=== PATIENT | female | born 1945 | race African-American/Black ===

== ENCOUNTER → 2016-11-24 | Outpatient (CLI) | payer MEDICARE, OTHER ==
[~2016-11-24] MED LIST: ASPIRIN 32325 MG/TAB PO; CALCIUM 600600 MG PO; CALCIUM 600MG+D1 TAB PO; CARDI-OMEGA1000 MG PO; COZAAR100 MG PO; EFFER-K10 MEQ PO; FE 50160 MG PO; FISH OIL 1000MG1 CAP PO; FOLIC ACID 40400 MCG PO; KLOR-CON 1010 MEQ PO; LASIX 20MG TABL20 MG PO; LIPITOR 80MG80 MG PO; LORTAB 7.5/5001 TAB PO; MOBIC 7.5MG7.5 MG PO; NATURE'S BLEN1000 IU PO; NITROSTAT0.4 MG/TAB SL; NORCO 325 MG-51 TAB PO; NORCO 325 MG-7.1 TAB PO; NORVASC 10MG10 MG PO; PLETAL 100MG T100 MG PO; PROZAC 20MG20 MG PO; RYZOLT100 MG PO; TIROSINT75 MC1 PO; TYLENOL 500MG500 MG PO; ULTRAM 50MG TAB50 MG PO; VALIUM 10MG10 MG/TAB PO; VITAMIN C500 MG PO; ZETIA 10MG TAB10 MG PO
== END ==
LOC: SUN.DIA 11-17 15:44
DX: E11.9 Type 2 diabetes mellitus without complications (principal); E66.9 Obesity, unspecified; Z68.32 Body mass index [BMI] 32.0-32.9, adult; Z71.3 Dietary counseling and surveillance; E78.5 Hyperlipidemia, unspecified; I10 Essential (primary) hypertension

== ENCOUNTER → 2017-02-11 | Outpatient (CLI) | payer MEDICARE, OTHER | LOC: MC.RAD 09:22 | DX: Z12.31 Encounter for screening mammogram for malignant neoplasm of breast (principal) ==

== ENCOUNTER → 2017-04-07 | Outpatient (CLI) | payer MEDICARE, OTHER | LOC: SUN.DIA 03-23 15:30 | DX: E11.9 Type 2 diabetes mellitus without complications (principal); E78.5 Hyperlipidemia, unspecified; I10 Essential (primary) hypertension; E66.9 Obesity, unspecified; Z68.33 Body mass index [BMI] 33.0-33.9, adult; Z71.3 Dietary counseling and surveillance | CPT/HCPCS: G0108 ==

== ENCOUNTER 2017-05-03 07:22 | Day surgery (SDC) | payer MEDICARE, OTHER ==
[~2017-05-03] VITALS: Ht 147.3 cm; Wt 72.0 kg
[2017-05-03] VITALS (12 sets, daily range): BP systolic 124–156; BP diastolic 53–136; PULSE 68–83; TEMP 97.4–97.9
[~2017-05-03 07:22] MED LIST changes: -FISH OIL 1000MG1 CAP PO
[2017-05-03 07:58] LABS: INR 0.9 (0.8-3.0); PROTHROMBIN TIME 10.1 SECONDS (9.7-12.8)
[2017-05-03 07:59] LABS: HEMATOCRIT 38.6 % (37.0-47.0); HEMOGLOBIN 12.9 g/dl (12.5-16.0); MEAN CELL VOLUME 91 fl (80.0-100.0); MEAN CORPUSCULAR HEMOGLOBIN 30 pg (27.0-31.0); MEAN CORPUSCULAR HGB CONC 33 g/dl (33.0-37.0); PLATELET COUNT 240 K/mm3 (130-400); RED BLOOD COUNT 4.24 M/mm3 (4.10-5.30); REDCELL DISTRIBUTION WIDTH-CV 13.2 % (11.5-14.5); WHITE BLOOD COUNT 4.2 K/mm3 (4.8-10.8)
[2017-05-03] MEDS ORDERED: FISH OIL 1000MG1 CAP PO (08:01)
[2017-05-03] MEDS ORDERED: MOBIC 7.5MG7.5 MG PO (08:05)
[2017-05-03 08:10] LABS: CALCIUM 9.2 mg/dL (8.4-10.2); CREATININE, serum 0.83 mg/dL (0.52-1.25)
[2017-05-03 08:24] LABS: POTASSIUM 3.4 mmol/L (3.4-5.0)
== END 2017-05-03 15:56 | disposition home or self-care (01) ==
LOC: COL.CAR 07:22
PROVIDERS: Internal Medicine Cardiovascular Disease
DX: I25.10 Atherosclerotic heart disease of native coronary artery without angina pectoris (principal); I10 Essential (primary) hypertension; Z95.5 Presence of coronary angioplasty implant and graft; F41.8 Other specified anxiety disorders; F32.9 Major depressive disorder, single episode, unspecified; K21.9 Gastro-esophageal reflux disease without esophagitis; M19.90 Unspecified osteoarthritis, unspecified site; M48.06 Spinal stenosis, lumbar region; I73.9 Peripheral vascular disease, unspecified; E11.9 Type 2 diabetes mellitus without complications; E78.2 Mixed hyperlipidemia; L30.9 Dermatitis, unspecified; I31.3 Pericardial effusion (noninflammatory); E03.9 Hypothyroidism, unspecified; R94.39 Abnormal result of other cardiovascular function study; E88.81 Metabolic syndrome and other insulin resistance; Z96.651 Presence of right artificial knee joint; Z83.3 Family history of diabetes mellitus; Z82.49 Family history of ischemic heart disease and other diseases of the circulatory system; Z90.710 Acquired absence of both cervix and uterus; Z87.891 Personal history of nicotine dependence; Z82.61 Family history of arthritis; Z82.3 Family history of stroke
CPT/HCPCS: C1760; C1769; C1887; J0153; J1644; J2250; J3010; Q9967

== ENCOUNTER → 2017-11-17 | Outpatient (CLI) | payer MEDICARE, OTHER, BC ==
[~2017-11-17] MED LIST changes: +FISH OIL 1000MG1 CAP PO
== END ==
LOC: SUN.DIA 08:43
DX: E11.51 Type 2 diabetes mellitus with diabetic peripheral angiopathy without gangrene (principal); E78.5 Hyperlipidemia, unspecified; I10 Essential (primary) hypertension; E66.9 Obesity, unspecified; Z68.32 Body mass index [BMI] 32.0-32.9, adult; Z71.3 Dietary counseling and surveillance; Z87.891 Personal history of nicotine dependence
CPT/HCPCS: G0108

== ENCOUNTER → 2018-01-02 | Outpatient (CLI) | payer MEDICARE, OTHER, BC | LOC: SUN.DIA 09:00 | DX: E11.51 Type 2 diabetes mellitus with diabetic peripheral angiopathy without gangrene (principal); E78.5 Hyperlipidemia, unspecified; I10 Essential (primary) hypertension; E66.9 Obesity, unspecified; Z71.3 Dietary counseling and surveillance; Z87.891 Personal history of nicotine dependence | CPT/HCPCS: G0109 ==

== ENCOUNTER → 2018-01-09 | Outpatient (CLI) | payer MEDICARE, OTHER, BC | LOC: SUN.DIA 09:00 | DX: E11.51 Type 2 diabetes mellitus with diabetic peripheral angiopathy without gangrene (principal); E78.5 Hyperlipidemia, unspecified; I10 Essential (primary) hypertension; E66.9 Obesity, unspecified; Z71.3 Dietary counseling and surveillance; Z87.891 Personal history of nicotine dependence | CPT/HCPCS: G0109 ==

== ENCOUNTER → 2018-01-16 | Outpatient (CLI) | payer MEDICARE, OTHER, BC | LOC: SUN.DIA 09:00 | DX: E11.51 Type 2 diabetes mellitus with diabetic peripheral angiopathy without gangrene (principal); E78.5 Hyperlipidemia, unspecified; I10 Essential (primary) hypertension; E66.9 Obesity, unspecified; Z71.3 Dietary counseling and surveillance; Z87.891 Personal history of nicotine dependence | CPT/HCPCS: G0109 ==

== ENCOUNTER → 2018-01-23 | Outpatient (CLI) | payer MEDICARE, OTHER, BC | LOC: SUN.DIA 09:00 | DX: E11.51 Type 2 diabetes mellitus with diabetic peripheral angiopathy without gangrene (principal); E78.5 Hyperlipidemia, unspecified; I10 Essential (primary) hypertension; E66.9 Obesity, unspecified; Z71.3 Dietary counseling and surveillance; Z87.891 Personal history of nicotine dependence | CPT/HCPCS: G0109 ==

== ENCOUNTER → 2018-04-26 | Outpatient (CLI) | payer MEDICARE, OTHER | LOC: MC.RAD 03-22 08:40 | DX: Z12.31 Encounter for screening mammogram for malignant neoplasm of breast (principal) ==

== ENCOUNTER → 2018-05-29 | Outpatient (CLI) | payer MEDICARE, OTHER | LOC: SUN.DIA 05-16 09:39 | DX: E11.9 Type 2 diabetes mellitus without complications (principal); E78.5 Hyperlipidemia, unspecified; I10 Essential (primary) hypertension; E66.9 Obesity, unspecified; Z68.32 Body mass index [BMI] 32.0-32.9, adult; Z71.3 Dietary counseling and surveillance; I73.9 Peripheral vascular disease, unspecified | CPT/HCPCS: G0108 ==

== ENCOUNTER 2018-06-27 11:30 | Outpatient (RCR) | payer MEDICARE, OTHER | END 2018-09-14 | disposition home or self-care (01) | LOC: MKS.ESL.PT | DX: M54.42 Lumbago with sciatica, left side (principal); M54.41 Lumbago with sciatica, right side; G89.29 Other chronic pain | CPT/HCPCS: G0283-GP; G8978-GP; G8979-GP ==

== ENCOUNTER → 2018-06-28 | Outpatient (CLI) | payer MEDICARE, OTHER | LOC: COL.RAD 14:21 | DX: M48.061 Spinal stenosis, lumbar region without neurogenic claudication (principal); M41.86 Other forms of scoliosis, lumbar region; M47.816 Spondylosis without myelopathy or radiculopathy, lumbar region; M99.73 Connective tissue and disc stenosis of intervertebral foramina of lumbar region; M54.42 Lumbago with sciatica, left side ==

== ENCOUNTER → 2018-08-11 | Outpatient (CLI) | payer MEDICARE, OTHER | LOC: MHCPAIN 09:46 | DX: G89.29 Other chronic pain (principal); M54.16 Radiculopathy, lumbar region; M53.3 Sacrococcygeal disorders, not elsewhere classified; M47.817 Spondylosis without myelopathy or radiculopathy, lumbosacral region; M48.061 Spinal stenosis, lumbar region without neurogenic claudication | CPT/HCPCS: G0463 ==

== ENCOUNTER → 2018-08-31 | Outpatient (CLI) | payer MEDICARE, OTHER | LOC: MHCPAIN 11:36 | DX: M47.817 Spondylosis without myelopathy or radiculopathy, lumbosacral region (principal); M54.16 Radiculopathy, lumbar region | CPT/HCPCS: J1100; Q9967 ==

== ENCOUNTER → 2018-09-12 | Outpatient (CLI) | payer MEDICARE, OTHER | LOC: MHCPAIN 10:42 | DX: G89.29 Other chronic pain (principal); M47.817 Spondylosis without myelopathy or radiculopathy, lumbosacral region; M54.16 Radiculopathy, lumbar region; M53.3 Sacrococcygeal disorders, not elsewhere classified; M48.061 Spinal stenosis, lumbar region without neurogenic claudication | CPT/HCPCS: G0463 ==

== ENCOUNTER → 2018-09-14 | Outpatient (CLI) | payer MEDICARE, OTHER | LOC: MHCPAIN 09:54 | DX: M47.817 Spondylosis without myelopathy or radiculopathy, lumbosacral region (principal); M54.16 Radiculopathy, lumbar region | CPT/HCPCS: J1100; Q9967 ==

== ENCOUNTER → 2018-10-10 | Outpatient (CLI) | payer MEDICARE, OTHER | LOC: MHCPAIN 09:33 | DX: G89.29 Other chronic pain (principal); M47.817 Spondylosis without myelopathy or radiculopathy, lumbosacral region; M54.16 Radiculopathy, lumbar region; M53.3 Sacrococcygeal disorders, not elsewhere classified; M48.061 Spinal stenosis, lumbar region without neurogenic claudication | CPT/HCPCS: G0463 ==

== ENCOUNTER → 2018-10-19 | Outpatient (CLI) | payer MEDICARE, OTHER | LOC: MHCPAIN 09:41 | DX: M47.817 Spondylosis without myelopathy or radiculopathy, lumbosacral region (principal); M54.16 Radiculopathy, lumbar region | CPT/HCPCS: J1100; Q9967 ==

== ENCOUNTER → 2018-11-30 | Outpatient (CLI) | payer MEDICARE, OTHER | LOC: SUN.DIA 12:43 | DX: E11.9 Type 2 diabetes mellitus without complications (principal); E78.5 Hyperlipidemia, unspecified; I10 Essential (primary) hypertension; E66.9 Obesity, unspecified; I73.9 Peripheral vascular disease, unspecified | CPT/HCPCS: G0108 ==

== ENCOUNTER → 2018-12-20 | Outpatient (CLI) | payer MEDICARE, OTHER | LOC: MHCPAIN 08:42 | DX: G89.29 Other chronic pain (principal); M47.817 Spondylosis without myelopathy or radiculopathy, lumbosacral region; M54.16 Radiculopathy, lumbar region; M53.3 Sacrococcygeal disorders, not elsewhere classified; M48.061 Spinal stenosis, lumbar region without neurogenic claudication | CPT/HCPCS: G0463 ==

== ENCOUNTER → 2019-03-09 | Outpatient (CLI) | payer MEDICARE, OTHER | LOC: COL.RAD 10:18 | DX: M43.17 Spondylolisthesis, lumbosacral region (principal); M51.16 Intervertebral disc disorders with radiculopathy, lumbar region; M41.86 Other forms of scoliosis, lumbar region ==

== ENCOUNTER → 2019-05-28 | Outpatient (CLI) | payer MEDICARE, OTHER | LOC: DIA.ED 09:56 | DX: E11.9 Type 2 diabetes mellitus without complications (principal); E78.5 Hyperlipidemia, unspecified; I10 Essential (primary) hypertension; E66.9 Obesity, unspecified | CPT/HCPCS: G0108 ==

== ENCOUNTER → 2019-06-12 | Outpatient (CLI) | payer MEDICARE, OTHER | LOC: MC.RAD 11:43 | DX: Z12.31 Encounter for screening mammogram for malignant neoplasm of breast (principal) ==

== ENCOUNTER 2019-07-03 11:00 | Outpatient (RCR) | payer MEDICARE, OTHER | END 2019-07-09 | disposition home or self-care (01) | LOC: WSPT | DX: M43.16 Spondylolisthesis, lumbar region (principal); M48.062 Spinal stenosis, lumbar region with neurogenic claudication; M71.38 Other bursal cyst, other site; M81.0 Age-related osteoporosis without current pathological fracture; I10 Essential (primary) hypertension; E55.9 Vitamin D deficiency, unspecified ==

== ENCOUNTER → 2019-08-03 | Outpatient (CLI) | payer MEDICARE, OTHER | LOC: COL.RAD 07:58 | DX: M47.22 Other spondylosis with radiculopathy, cervical region (principal); I65.29 Occlusion and stenosis of unspecified carotid artery; M47.24 Other spondylosis with radiculopathy, thoracic region; M99.72 Connective tissue and disc stenosis of intervertebral foramina of thoracic region; M43.16 Spondylolisthesis, lumbar region; M48.02 Spinal stenosis, cervical region; M47.12 Other spondylosis with myelopathy, cervical region; M99.73 Connective tissue and disc stenosis of intervertebral foramina of lumbar region; E11.9 Type 2 diabetes mellitus without complications; I10 Essential (primary) hypertension | CPT/HCPCS: Q9967 ==

== ENCOUNTER 2019-08-21 10:15 | Outpatient (RCR) | payer MEDICARE, OTHER ==
[2019-08-22] MEDS ORDERED: MASON NATURAL2000 IU PO (17:50)
[2019-08-22] MEDS ORDERED: CALCIUM ASCORB500 MG PO (17:50)
[2019-08-22] MEDS ORDERED: NEURONTIN300 MG/CAP PO (17:55)
[2019-08-22] MEDS ORDERED: FLOMAX 0.40.4 MG/CAP PO (21:02)
== END 2019-09-04 14:17 | disposition home or self-care (01) ==
LOC: WSC 10:15
DX: Z01.812 Encounter for preprocedural laboratory examination (principal); M48.02 Spinal stenosis, cervical region; M43.16 Spondylolisthesis, lumbar region; M48.061 Spinal stenosis, lumbar region without neurogenic claudication; M47.12 Other spondylosis with myelopathy, cervical region; M81.0 Age-related osteoporosis without current pathological fracture

== ENCOUNTER 2019-08-22 17:09 | Emergency (ER) | payer MEDICARE, OTHER ==
[~2019-08-22] VITALS: Ht 142.2 cm; Wt 72.7 kg
[2019-08-22 17:16] VITALS: BP 175/75; TEMP 98.2
[2019-08-22] MEDS ORDERED: CALCIUM ASCORB500 MG PO (17:50)
[2019-08-22] MEDS ORDERED: MASON NATURAL2000 IU PO (17:50)
[2019-08-22] MEDS ORDERED: NEURONTIN300 MG/CAP PO (17:55)
[2019-08-22 18:08] LABS: BASO % 0.5 % (0.0-2.0); EOS # 0.2 (0.0-0.7); EOS % 3.1 % (0-4.0); GRAN # 3.2 (1.4-6.5); GRAN % 58.6 % (42.2-75.2); HEMATOCRIT 40.9 % (37.0-47.0); HEMOGLOBIN 13.1 g/dl (12.5-16.0); LYMPH # 1.4 (1.2-3.4); LYMPH % 24.4 % (20.0-51.0); MEAN CELL VOLUME 95 fl (80.0-100.0); MEAN CORPUSCULAR HEMOGLOBIN 30 pg (27.0-31.0); MEAN CORPUSCULAR HGB CONC 32 g/dl (33.0-37.0); MEAN PLATELET VOLUME 9.2 fl (7.4-10.4); MONO # 0.7 (0.1-0.6); MONO % 13.2 % (1.7-9.3); PLATELET COUNT 212 K/mm3 (130-400); RED BLOOD COUNT 4.33 M/mm3 (4.10-5.30); REDCELL DISTRIBUTION WIDTH-CV 12.7 % (11.5-14.5)
[2019-08-22 18:16] LABS: ALANINE AMINOTRANSFERASE 23 U/L (9-52); ALBUMIN 4.4 gm/dL (3.5-5.0); ALKALINE PHOSPHATASE 85 U/L (50-136); ANION GAP 11 mmol/L (7-16); AST,SGOT 32 U/L (15-37); BILIRUBIN,TOTAL 0.4 mg/dL (0.0-1.0); BLOOD UREA NITROGEN 18 mg/dL (7-17); CALCIUM 9.2 mg/dL (8.4-10.2); CARBON DIOXIDE 28 mmol/L (22-30); CHLORIDE 101 mmol/L (98-107); CREATININE, serum 1.03 (0.52-1.25); GLUCOSE 127 mg/dL (74-106); LIPASE 347 U/L (23-300); POTASSIUM 3.8 mmol/L (3.4-5.0); SODIUM 139 mmol/L (137-145); TOTAL PROTEIN 8.1 gm/dL (6.4-8.2)
[2019-08-22 18:18] LABS: C-REACTIVE PROTEIN < 0.5 mg/dL (0.0-0.9)
[2019-08-22 18:28] LABS: TROPONIN-I < 0.012 ng/mL (0.000-0.035)
[2019-08-22 18:33] LABS: COLLECTION METHOD CLEAN CATCH
[2019-08-22 18:38] LABS: PH 7 (5-8); SQUAMOUS EPITHELIAL 0-2 /hpf; URINE APPEARANCE Clear; URINE BACTERIA Rare /hpf; URINE BILIRUBIN Negative (NEGATIVE); URINE BLOOD Negative (NEGATIVE); URINE COLOR Straw; URINE GLUCOSE Negative (NEGATIVE); URINE KETONE Negative (NEGATIVE); URINE LEUKOCYTE ESTERASE Negative (NEGATIVE); URINE NITRATE Negative (NEGATIVE); URINE PROTEIN(semi-quant) Negative (NEGATIVE); URINE RBC 0-2 /hpf; URINE UROBILINOGEN Negative (NEGATIVE)
[2019-08-22] MEDS ORDERED: FLOMAX 0.40.4 MG/CAP PO (21:02)
[2019-08-22 21:19] VITALS: PULSE 95
== END 2019-08-22 21:19 | disposition home or self-care (01) ==
LOC: COL.ER 17:09
PROVIDERS: Emergency Medicine
DX: R33.9 Retention of urine, unspecified (principal); R10.9 Unspecified abdominal pain; I48.91 Unspecified atrial fibrillation; I10 Essential (primary) hypertension; E78.5 Hyperlipidemia, unspecified; Z79.82 Long term (current) use of aspirin
CPT/HCPCS: J2405; J2550; J3010; J7030; Q9967

== ENCOUNTER → 2020-06-24 | Outpatient (CLI) | payer MEDICARE, OTHER ==
[~2020-06-24] MED LIST changes: +CALCIUM ASCORB500 MG PO; +FLOMAX 0.40.4 MG/CAP PO; +MASON NATURAL2000 IU PO; +NEURONTIN300 MG/CAP PO
== END ==
LOC: MC.RAD 09:45
DX: Z12.31 Encounter for screening mammogram for malignant neoplasm of breast (principal)

== ENCOUNTER → 2021-08-04 | Outpatient (CLI) | payer MEDICARE ==
[~2021-08-04] MED LIST changes: +FLEXERIL5 MG PO; +IMDUR 30MG30 MG/TAB PO; +IMITREX50 MG PO; +NYAMYC100000 U/G TP; +NYSTATIN CREAM15 GM TP; +TOPROL XL 25MG25 MG PO; +ZOLOFT 50MG50 MG PO
== END ==
LOC: MC.RAD 10:00
DX: Z12.31 Encounter for screening mammogram for malignant neoplasm of breast (principal)

== ENCOUNTER 2021-08-12 08:19 | Day surgery (SDC) | payer MEDICARE, OTHER ==
[2021-08-12] VITALS (11 sets, daily range): BP systolic 110–171; BP diastolic 42–73; PULSE 60–72; TEMP 98.2
[~2021-08-12] VITALS: Ht 142.2 cm; Wt 74.0 kg
[~2021-08-12 08:19] MED LIST changes: -FLEXERIL5 MG PO; -IMDUR 30MG30 MG/TAB PO; -IMITREX50 MG PO; -NYAMYC100000 U/G TP; -NYSTATIN CREAM15 GM TP; -TOPROL XL 25MG25 MG PO; -ZOLOFT 50MG50 MG PO
[2021-08-12] MEDS ORDERED: FLEXERIL5 MG PO (08:41)
[2021-08-12] MEDS ORDERED: TOPROL XL 25MG25 MG PO (08:41)
[2021-08-12] MEDS ORDERED: NYSTATIN CREAM15 GM TP (08:42)
[2021-08-12] MEDS ORDERED: NYAMYC100000 U/G TP (08:42)
[2021-08-12] MEDS ORDERED: ZOLOFT 50MG50 MG PO (08:43)
[2021-08-12] MEDS ORDERED: IMITREX50 MG PO (08:43)
[2021-08-12 09:08] LABS: HEMATOCRIT 40.5 % (37.0-47.0); MEAN CELL VOLUME 93 fl (80.0-100.0); MEAN CORPUSCULAR HEMOGLOBIN 30 pg (27.0-31.0); MEAN CORPUSCULAR HGB CONC 32 g/dl (33.0-37.0); PLATELET COUNT 229 K/mm3 (130-400); RED BLOOD COUNT 4.38 M/mm3 (4.10-5.30); REDCELL DISTRIBUTION WIDTH-CV 12.9 % (11.5-14.5)
[2021-08-12 09:26] LABS: INR 1.1 (0.8-3.0); PROTHROMBIN TIME 11.8 SECONDS (9.7-12.8)
[2021-08-12 09:29] LABS: PARTIAL THROMBOPLASTIN TIME 29.5 SECONDS (26.0-37.0)
[2021-08-12 09:35] LABS: CALCIUM 9.3 mg/dL (8.4-10.2); CREATININE, serum 1.14 mg/dL (0.57-1.11); POTASSIUM 3.8 mmol/L (3.5-4.5)
--- NOTE | 2021-08-12 09:42 | NUR ---
SEE MERGE FOR ALL MEDICATION ADMINSTRATION TIMES, INTRA AND POST SEDATION ASSESSMENTS
--- NOTE | 2021-08-12 10:45 | NUR ---
Report from Blanka OWEN. Transferred from [facility] by bed. Right Tband with 12 cc air CD&I, good pulses and cap refill < 3 secs noted. VSS. Friend bedside
--- NOTE | 2021-08-12 13:30 | NUR ---
12 cc air released from right Tband and dressing applied. INT discontinued intact.
[2021-08-12] MEDS ORDERED: IMDUR 30MG30 MG/TAB PO (13:48)
--- NOTE | 2021-08-12 13:50 | NUR ---
Discharge instructions given. Transferred to private car by barrett
== END 2021-08-12 14:00 | disposition home or self-care (01) ==
LOC: COL.CAR 08:19
PROVIDERS: Internal Medicine Cardiovascular Disease
DX: I25.10 Atherosclerotic heart disease of native coronary artery without angina pectoris (principal); R94.39 Abnormal result of other cardiovascular function study; I10 Essential (primary) hypertension; E78.5 Hyperlipidemia, unspecified; E11.9 Type 2 diabetes mellitus without complications; I73.9 Peripheral vascular disease, unspecified; Z20.822 Contact with and (suspected) exposure to COVID-19
CPT/HCPCS: C1769; J1644; J2250; J3010

== ENCOUNTER → 2021-09-08 | Outpatient (CLI) | payer MEDICARE, OTHER ==
[~2021-09-08] MED LIST changes: +FLEXERIL5 MG PO; +IMDUR 30MG30 MG/TAB PO; +IMITREX50 MG PO; +NYAMYC100000 U/G TP; +NYSTATIN CREAM15 GM TP; +TOPROL XL 25MG25 MG PO; +ZOLOFT 50MG50 MG PO
== END ==
LOC: COL.RAD 08:51
DX: M47.812 Spondylosis without myelopathy or radiculopathy, cervical region (principal); M50.30 Other cervical disc degeneration, unspecified cervical region; M48.02 Spinal stenosis, cervical region; M48.03 Spinal stenosis, cervicothoracic region

== ENCOUNTER 2021-12-15 08:05 | Day surgery (SDC) | payer MEDICARE, OTHER ==
[~2021-12-15] VITALS: Ht 147.3 cm; Wt 74.5 kg
[~2021-12-15 08:05] MED LIST changes: -CALCIUM ASCORB500 MG PO; +TUMS ULTRA1000 MG PO
[2021-12-15 09:19] VITALS: BP 130/60; PULSE 77; TEMP 98
[2021-12-15] MEDS ORDERED: MAG-OX 400400 MG/TAB PO (09:42)
[2021-12-15] MEDS ORDERED: VITAMIN D31000 I1 PO (09:46)
[2021-12-15] MEDS ORDERED: CEPHALEXIN250 M1 PO (09:47)
[2021-12-15 10:10] VITALS: BP 98/34; PULSE 72; TEMP 98.3
[2021-12-15 10:25] VITALS: BP 94/44; PULSE 71
[2021-12-15 10:40] VITALS: BP 104/49; PULSE 70
[2021-12-15 10:50] VITALS: BP 94/60; PULSE 70
[2021-12-15 11:00] VITALS: BP 128/49; PULSE 72
--- NOTE | 2021-12-15 11:35 | NUR ---
1010 PT RETURNED TO [facility] VIA CART, TRANSFERED TO CHAIR WITH RN ASSIST. ALERT AND ORIENTED. MONITORS ON AND ALARMS SET. PT BP IS LOW, NOT EXPERIENCING ANY SYMPTOMS. SODA, PUDDING AND MUFFIN PROVIDED. PT DENIES AND PAIN OR NAUSEA. 1025 PT TOLERATING FOOD AND DRINK WELL. DENIES ANY DISCOMFORT. PT REMAINS ASYMTOMATIC OF HYPOTENSION. 1040 PT SITTING UP IN CHAIR. DENIES ANY DISCOMFORT OR SYMPTOMS OF HYPOTENSION. WILL CONTINUE TO MONITOR PT BP. HYPOTENSION REPORTED TO DR. ASHRAF, IN TO SPEAK WITH AND ASSESS PT. NO NEW ORDERS, OK TO D/C PT HOME IF REMAINS ASYMTOMATIC. 1050 PT SITTING UP IN CHAIR, TALKING AND ASKING QUESTIONS. DENIES ANY SYMPTOMS OF HYPOTENSION. 1100 PT SITTING UP IN CHAIR TALKING. SHOWING NO SYMPTOMS OF HYPOTENSION. 1105 REVIEWED DISCHARGE INSTRUCTIONS AND EDUCATION MATERIAL. ANSERED QUESTIONS TO PT ANS SISTERS SATISFACTION. REMOVED IV WITHOUT COMPLICATION. INSTRUCTED PT TO DRESS AND OPEN DOOR WHEN READY FOR DISCHARGE. 1135 TRANSFERED PT VIA WHEEL CHAIR TO PERSONAL VEHICLE TO BE DRIVEN HOME BY SISTER.
== END 2021-12-15 11:35 | disposition home or self-care (01) ==
LOC: SDCO 08:05
DX: Z12.11 Encounter for screening for malignant neoplasm of colon (principal); Z86.010 Personal history of colon polyps; K64.0 First degree hemorrhoids; J45.909 Unspecified asthma, uncomplicated; E11.51 Type 2 diabetes mellitus with diabetic peripheral angiopathy without gangrene; I10 Essential (primary) hypertension; G89.29 Other chronic pain; M54.9 Dorsalgia, unspecified; F32.A Depression, unspecified; F41.9 Anxiety disorder, unspecified; I25.10 Atherosclerotic heart disease of native coronary artery without angina pectoris; E78.5 Hyperlipidemia, unspecified; M48.02 Spinal stenosis, cervical region; M43.10 Spondylolisthesis, site unspecified; E03.9 Hypothyroidism, unspecified; M19.90 Unspecified osteoarthritis, unspecified site; M81.0 Age-related osteoporosis without current pathological fracture; Z79.82 Long term (current) use of aspirin; Z79.899 Other long term (current) drug therapy; Z79.890 Hormone replacement therapy; Z79.1 Long term (current) use of non-steroidal anti-inflammatories (NSAID)
CPT/HCPCS: J2704

== ENCOUNTER 2022-07-06 06:29 | Day surgery (SDC) | payer MEDICARE, OTHER ==
[~2022-07-06] VITALS: Ht 147.3 cm; Wt 71.3 kg
[~2022-07-06 06:29] MED LIST changes: +CEPHALEXIN250 M1 PO; +CORAL CALCIUM PO; +Cleocin PO; +MAG-OX 400400 MG/TAB PO; +OXYGEN NASAL.CANN; +SYNTHROID0.075 MG/T PO; -TIROSINT75 MC1 PO; +VITAMIN D31000 I1 PO
[2022-07-06 07:23] LABS: BASO % 0.6 % (0.0-2.0); EOS # 0.1 K/mm3 (0.0-0.7); EOS % 2.1 % (0.0-4.0); GRAN # 1.7 K/mm3 (1.4-6.5); GRAN % 51.9 % (42.2-75.2); HEMATOCRIT 38.4 % (37.0-47.0); HEMOGLOBIN 12.6 g/dl (12.5-16.0); LYMPH # 0.8 K/mm3 (1.2-3.4); LYMPH % 25.5 % (20.0-51.0); MEAN CELL VOLUME 93 fl (80.0-100.0); MEAN CORPUSCULAR HEMOGLOBIN 30 pg (27-31); MEAN CORPUSCULAR HGB CONC 33 g/dl (33.0-37.0); MEAN PLATELET VOLUME 9.1 fl (7.4-10.4); MONO # 0.7 K/mm3 (0.1-0.6); MONO % 19.9 % (1.7-9.3); PLATELET COUNT 164 K/mm3 (130-400); RED BLOOD COUNT 4.14 M/mm3 (4.10-5.30); REDCELL DISTRIBUTION WIDTH-CV 12.9 % (11.5-14.5)
[2022-07-06 07:35] LABS: CALCIUM 9.2 mg/dL (8.4-10.2); CREATININE, serum 1.02 mg/dL (0.57-1.11); POTASSIUM 4.2 mmol/L (3.5-4.5)
[2022-07-06 07:39] LABS: PROTHROMBIN TIME 11.6 SECONDS (9.7-12.8)
--- NOTE | 2022-07-06 07:39 | NUR ---
Initial visit; Patient and her sister thanked Convention Services Director for offering comfort, optimism, and assurance along with prayer for a very successful procedure and rapid and thorough recovery. What a pleasure meeting two such nikki Scientologist ladies.
[2022-07-06] MEDS ORDERED: FLEXERIL5 MG PO (07:55)
[2022-07-06] MEDS ORDERED: LASIX 20MG TABL20 MG PO (07:57)
[2022-07-06] MEDS ORDERED: NORCO 325 MG-7.1 TAB PO (07:58)
[2022-07-06] MEDS ORDERED: IMDUR 30MG30 MG/TAB PO (07:59)
[2022-07-06] MEDS ORDERED: MAG-OX 400400 MG/TAB PO (08:01)
[2022-07-06] MEDS ORDERED: NYSTATIN CREAM15 GM TP (08:05)
[2022-07-06 08:06] VITALS: BP 141/50; PULSE 82; TEMP 98.2
[2022-07-06] MEDS ORDERED: NYSTATIN POWDER15 GM TOP (08:06)
--- NOTE | 2022-07-06 09:15 | NUR ---
Pt to procedure,report to LEXIE mars.
--- NOTE | 2022-07-06 09:34 | NUR ---
SEE MERGE FOR ASSESSMENT,INTERVENTIONS,MEDICATIONS AND VITAL SIGNS.
--- NOTE | 2022-07-06 10:41 | NUR ---
PT ARRIVED TO ROOM 351 VIA BED, PT A&O X4, PT ABLE TO MAKE NEEDS KNOWN, VSS, PT ORIENTED TO ROOM/FLOOR ROUTINES/PLAN OF CARE, PT DENIES PAIN,
[2022-07-06 12:45] LABS: ALBUMIN 3.4 gm/dL (3.4-4.8); BILIRUBIN,TOTAL 0.4 mg/dL (0.2-1.2); CALCIUM 8.8 mg/dL (8.4-10.2); CREATININE, serum 0.91 mg/dL (0.57-1.11); POTASSIUM 4.3 mmol/L (3.5-4.5); TOTAL PROTEIN 6.7 gm/dL (6.2-8.1)
[2022-07-06 13:04] LABS: THYROID STIMULATING HORMONE 0.327 uIU/mL (0.350-4.940)
[2022-07-06 15:29] VITALS: BP 131/43; PULSE 70; TEMP 97.3
[2022-07-06 20:09] VITALS: BP 161/53; PULSE 72; TEMP 98.1
[2022-07-06 23:52] VITALS: BP 145/48; PULSE 71; TEMP 98.4
[2022-07-07 04:01] VITALS: BP 158/61; PULSE 70; TEMP 97.3
--- NOTE | 2022-07-07 06:02 | NUR ---
PATIENT HAS HAD AN UNEVENTFUL NIGHT. DRESSING REMAINS CLEAN, DRY AND INTACT. PATIENT DENIES PAIN, NEEDS OR CONCERNS. PATIENT EXPRESSES APPRECIATION TO THIS NURSE. PATIENT IS ENCOURAGED TO USE WITHIN REACH CALL LIGHT WITH ANY QUESTIONS OR CONCERNS.
[2022-07-07 08:13] VITALS: BP 125/36; PULSE 72; TEMP 97.6
[2022-07-07] MEDS ORDERED: CLEOCIN HCL300 MG PO (11:02)
[2022-07-07 11:38] VITALS: BP 129/49; PULSE 70; TEMP 97.7
--- NOTE | 2022-07-07 13:19 | NUR ---
Follow-up visit; Patient thanked Search Engine Optimization Analyst for looking in on her following her surgical procedure yesterday. Patricia is going home today, her sister Viry came while was in Patricia's room to take her home. Search Engine Optimization Analyst offered God's blessings for both of them and wished them well.
--- NOTE | 2022-07-07 13:48 | NUR ---
pt dismissed today to home, pt and pt's sister at bedside during dismissal instructions, pt educated on dismissal instructions/medication instructions/follow up instructions, pt and sister voiced no questions/concerns at time of dismissal, iv dc'd, pt transported to exit per wc, no further concerns
== END 2022-07-07 13:50 | disposition home or self-care (01) ==
LOC: COL.CAR 06:29 → MEDICAL 10:53 → COL.CAR 07-07 13:50
PROVIDERS: Internal Medicine Cardiovascular Disease
DX: I49.5 Sick sinus syndrome (principal); I45.9 Conduction disorder, unspecified; Z79.82 Long term (current) use of aspirin; Z79.899 Other long term (current) drug therapy
CPT/HCPCS: C1769; C1785; C1894; C1898; J2250; J3010; J3370; J7050

== ENCOUNTER 2022-08-26 17:55 | Emergency (ER) | payer MEDICARE, OTHER ==
[~2022-08-26] VITALS: Ht 142.2 cm; Wt 69.1 kg
[~2022-08-26 17:55] MED LIST changes: +CLEOCIN HCL300 MG PO; +NYSTATIN POWDER15 GM TOP
[2022-08-26 18:48] VITALS: TEMP 97.8
[2022-08-26 20:26] LABS: BASO % 0.5 % (0.0-2.0); EOS # 0.1 K/mm3 (0.0-0.7); GRAN # 3.2 K/mm3 (1.4-6.5); GRAN % 58.8 % (42.2-75.2); HEMATOCRIT 38.7 % (37.0-47.0); HEMOGLOBIN 12.6 g/dl (12.5-16.0); LYMPH # 1.3 K/mm3 (1.2-3.4); LYMPH % 22.9 % (20.0-51.0); MEAN CELL VOLUME 91 fl (80.0-100.0); MEAN CORPUSCULAR HEMOGLOBIN 30 pg (27-31); MEAN CORPUSCULAR HGB CONC 33 g/dl (33.0-37.0); MEAN PLATELET VOLUME 9.1 fl (7.4-10.4); MONO # 0.9 K/mm3 (0.1-0.6); MONO % 15.6 % (1.7-9.3); PLATELET COUNT 209 K/mm3 (130-400); RED BLOOD COUNT 4.24 M/mm3 (4.10-5.30); REDCELL DISTRIBUTION WIDTH-CV 13.1 % (11.5-14.5)
[2022-08-26 20:39] LABS: ALBUMIN 3.9 gm/dL (3.4-4.8); BILIRUBIN,TOTAL 0.5 mg/dL (0.2-1.2); CALCIUM 9.6 mg/dL (8.4-10.2); CREATININE, serum 1.23 mg/dL (0.57-1.11); POTASSIUM 4.1 mmol/L (3.5-4.5); TOTAL PROTEIN 7.5 gm/dL (6.2-8.1)
[2022-08-26 20:45] LABS: TROPONIN-I 0.034 ng/mL (0.00-0.033)
[2022-08-26 21:14] VITALS: BP 148/67; PULSE 81
== END 2022-08-26 21:16 | disposition home or self-care (01) ==
LOC: COL.ER 17:55
PROVIDERS: Emergency Medicine
DX: M79.605 Pain in left leg (principal); M79.604 Pain in right leg; R77.8 Other specified abnormalities of plasma proteins

== ENCOUNTER → 2022-11-30 | Outpatient (CLI) | payer MEDICARE, OTHER | LOC: MC.RAD 10:16 | DX: Z12.31 Encounter for screening mammogram for malignant neoplasm of breast (principal) ==

== ENCOUNTER → 2023-02-02 | Outpatient (CLI) | payer MEDICARE, OTHER | LOC: COL.RAD 11:47 | DX: M47.816 Spondylosis without myelopathy or radiculopathy, lumbar region (principal); M43.16 Spondylolisthesis, lumbar region; M43.17 Spondylolisthesis, lumbosacral region; M48.061 Spinal stenosis, lumbar region without neurogenic claudication; M41.86 Other forms of scoliosis, lumbar region ==

== ENCOUNTER 2023-10-21 09:45 | Outpatient (RCR) | payer MEDICARE, OTHER ==
[~2023-10-21 09:45] MED LIST changes: +ASPI325T6 PO; +BREZTRI AEROS10.7 GM IH; +DEBROX OT; +EPA FISH OIL1 SGL PO; +NAPROSYN500 MG PO; +NYSTATIN100000 U/1 TOP; +OXYGEN; +PRILOSEC 20MG20 MG PO; +SENEXON-S 50-81 EACH PO
== END 2023-11-06 | disposition home or self-care (01) ==
LOC: WSPT
DX: M25.551 Pain in right hip (principal); Z96.641 Presence of right artificial hip joint

== ENCOUNTER 2023-11-03 15:00 | Outpatient (RCR) | payer MEDICARE, OTHER | END 2023-11-06 | disposition home or self-care (01) | LOC: MKS.ESL.PT | DX: M25.551 Pain in right hip (principal); Z96.641 Presence of right artificial hip joint ==

== ENCOUNTER 2023-12-06 12:45 | Outpatient (RCR) | payer OTHER, MEDICARE | END 2023-12-07 | disposition home or self-care (01) | LOC: MKS.ESL.PT | DX: M25.551 Pain in right hip (principal); Z96.641 Presence of right artificial hip joint ==

== ENCOUNTER 2023-12-13 12:45 | Outpatient (RCR) | payer MEDICARE ==
[2024-01-09] MEDS ORDERED: PROTONIX 40MG T40 MG PO (10:19)
== END 2024-01-05 | disposition home or self-care (01) ==
LOC: MKS.ESL.PT
DX: Z96.641 Presence of right artificial hip joint (principal)

== ENCOUNTER → 2024-01-26 | Outpatient (CLI) | payer MEDICARE, OTHER ==
[~2024-01-26] MED LIST changes: +PROTONIX 40MG T40 MG PO
== END ==
LOC: MC.RAD 16:19
DX: Z12.31 Encounter for screening mammogram for malignant neoplasm of breast (principal)